=== PATIENT | male | born 2005 | race African-American/Black ===

== ENCOUNTER 2024-10-04 14:16 | Emergency (ER) | payer OTHER ==
[2024-10-04] MEDS ORDERED: ALBUTEROL 2.5 MG/3 ML NEB SOL ONE (14:28)
[2024-10-04] MEDS ORDERED: IPRATROPIUM BROM 0.5MG/2.5ML ONE (14:28)
[2024-10-04 15:04] LABS: SARS-CoV-2 Antigen Rapid Res Negative (Negative)
[2024-10-04 15:08] LABS: Absolute Lymphocytes (CBC) 0.4 K/uL (0.7-4.9); Absolute Monocytes 0.6 K/uL (0.1-1.3); Absolute Neutrophil 11.2 K/uL (1.8-8.0); Basophils % 0.1 % (0-1.3); Eosinophils % 0.1 % (0-4.4); Hemoglobin 11.9 g/dL (13.6-17.9); Lymphocytes % 3.5 % (15.3-44.8); MCV 79.6 fL (80-100); MPV 7.7 fL (7.6-11.3); Monocytes % 4.8 % (3.3-12.3); Neutrophils % 91.5 % (41.7-73.7); Nucleated Red Blood Cells % 0.1 % (0-0); Platelets 314 thou/uL (152-406); Red Cell Distribution Width 14.9 % (12.1-15.2)
--- NOTE | 2024-10-04 15:08 | RAD REPORT ---
EXAMINATION: TWO VIEW CHEST XR CLINICAL INDICATION: Male, 19 years old. [facility] MA[facility] shortness of breath Bed Name: 11 TECHNIQUE: 2 view radiographs of the chest were performed. COMPARISON: No prior exam. FINDINGS: Patchy opacities possibly with layering effusion components throughout most of the left hemithorax, w ith some residual aeration centrally and near the left base. Mild volume loss with mild leftward tracheal deviation. Right lung is clear. No pneumothorax or right-sided effusion. The heart is normal in size. Mediastinal contours are unremarkable. IMPRESSION: Left hemithorax pleural-parenchymal opacification as above, concerning for pneumonia.
[2024-10-04] MEDS ORDERED: CEFTRIAXONE 1000 MG/VIAL ONE (15:22)
[2024-10-04] MEDS ORDERED: AZITHROMYCIN 500 MG INJ IVPB ONE (15:22)
[2024-10-04] MEDS ORDERED: NA CHLORIDE 0.9% 250 ML ONE (15:22)
[2024-10-04 15:28] LABS: Albumin 3.1 g/dL (3.4-5.0); Albumin/Globulin Ratio 0.5 (1.1-1.8); Anion Gap 9.5 mEq/L (5.0-15.0); Bilirubin Total 0.3 mg/dL (0.2-1.0); Globulin 6.7 g/dL (2.3-3.5); Potassium 3.5 mEq/L (3.5-5.1); Protein, Total 9.8 g/dL (6.4-8.2)
[2024-10-04 15:31] LABS: PT Prothrombin Time 14.8 SECONDS (10-13.0); PTT, Activated Partial Thromb 29.6 SECONDS (27.2-37.4); Protime INR 1.32
--- NOTE | 2024-10-04 16:03 | EDPHYS ---
Physician Documentation [facility] Name: Nicky Marx Age: 19 yrs Sex: Male : 2005 Arrival Date: 10/04/2024 Time: 14:16 Bed 11 Private MD: ED Physician Shamar Tovar HPI: 10/04 14:21 This 19 yrs old Male presents to ER via Unassigned with complaints of Shortness Of ms3 Breath. 14:21 19-year-old male with past medical history of asthma presents to the emergency ms3 department for asthma exacerbation has been ongoing for 1 week. Patient states he has had a cough and lightheadedness. EMS notes patient was given 125 mg Solu-Medrol and a DuoNeb at the present. EMS notes patient's oxygen saturation 96% during transport. Patient denies pain. Patient denies any alleviating or inciting factors. Historical: - Allergies: 14:19 No Known Allergies; aa5 - PMHx: 14:41 Asthma; Depressive disorder; aa5 - Immunization history:: Adult Immunizations unknown. - Infectious Disease History:: Denies. - Social history:: Smoking status: Patient reports the use of cigarette tobacco products, Reported history of juuling and/or vaping. ROS: 14:21 Constitutional: Negative for fever, and chills. Cardiovascular: Negative for chest ms3 pain, and palpitations. Abdomen/GI: Negative for abdominal pain, nausea, vomiting, diarrhea, and constipation, 14:21 MS/Extremity: Negative for injury and deformity, Skin: Negative for injury, rash, and discoloration, 14:21 Respiratory: Positive for shortness of breath, Exam: 14:21 Constitutional: This is a well developed, well nourished patient who is awake, alert, ms3 and in no acute distress. Cardiovascular: Regular rate and rhythm with a normal S1 and S2. No gallops, murmurs, or rubs. Normal PMI, no JVD. No pulse deficits. Respiratory: Lungs have equal breath sounds bilaterally, clear to auscultation and percussion. No rales, rhonchi or wheezes noted. No increased work of breathing, no retractions or nasal flaring. Abdomen/GI: Soft, non-tender, with normal bowel sounds. No distension or tympany. No guarding or rebound. No evidence of tenderness throughout. Skin: Warm, dry with normal turgor. Normal color with no rashes, no lesions, and no evidence of cellulitis. MS/ Extremity: Pulses equal, no cyanosis. Neurovascular intact. Full, normal range of motion. 15:33 ECG was reviewed by the Attending Physician. ms3 Vital Signs: 14:19 BP 128 / 67; Pulse 107; Resp 20 S; Temp 100.2(O); Pulse Ox 97% on R/A; Weight 67.59 kg aa5 (R); Height 6 ft. 0 in. (R); 16:03 BP 126 / 70; Pulse 113; Resp 18 S; Temp 98.9(O); Pulse Ox 96% on R/A; aa5 17:00 BP 123 / 75; Pulse 102; Resp 18; Pulse Ox 94% on R/A; jb4 17:53 BP 135 / 73; Pulse 102; Resp 18; Pulse Ox 96% on R/A; jb4 14:19 Body Mass Index 20.21 (67.59 kg, 182.88 cm) aa5 MDM: 14:20 Medical Screening Exam initiated ms3 14:21 Differential diagnosis: asthma, pneumonia. ms3 16:03 Data reviewed: vital signs, nurses notes, lab test result(s), EKG, radiologic studies, ms3 plain films, and as a result, I will transfer patient. Consideration of Admission/Observation Patient transferred. Management of patient was discussed with the following: Hospitalist: [facility]illas- [facility]. I considered the following discharge prescriptions or medication management in the emergency department Medications were administered in the Emergency Department. See MAR. Independent interpretation of the following test(s) in the Emergency Department EKG: See my EKG interpretation above X-Ray: My interpretation is CXR image reveals L hemithorax opacification. Historians other than the Patient: EMS: Davion Marie. Counseling: I had a detailed discussion with the patient and/or guardian regarding the historical points, exam findings, and any diagnostic results supporting the discharge/admit diagnosis, lab results, radiology results, the need to transfer to another facility, [facility]. Response to treatment: There is no appreciated change of the patient's symptoms at this time, and as a result, I will transfer patient. ED course: Discussed with patient and guards necessity for admission. Patient is with [place] [facility] and necessitates transfer to [facility] if beds are available. Discussed case with and he accepts patient to [facility]. 10/04 14:31 Order name: SARS RAPID; Complete Time: 15:32 aa5 10/04 14:35 Order name: Blood Culture Adult (2) ms3 10/04 14:35 Order name: CBC with Diff; Complete Time: 17:07 ms3 10/04 14:35 Order name: CMP; Complete Time: 15:32 ms3 10/04 14:35 Order name: Lactate w/ 2H reflex if indic.; Complete Time: 15:32 ms3 10/04 14:35 Order name: Protime (+inr); Complete Time: 15:32 ms3 10/04 14:35 Order name: Ptt, Activated; Complete Time: 15:32 ms3 10/04 16:54 Order name: CBC Smear Scan; Complete Time: 17:07 EDMS 10/04 14:21 Order name: Chest Pa And Lat (2 Views) XRAY; Complete Time: 15:32 ms3 10/04 14:36 Order name: CT Chest W/ Con; Complete Time: 17:07 ms3 10/04 14:35 Order name: EKG; Complete Time: 14:36 ms3 10/04 14:35 Order name: Accucheck; Complete Time: 14:58 ms3 10/04 14:35 Order name: Cardiac monitoring; Complete Time: 14:58 ms3 10/04 14:35 Order name: EKG - Nurse/Tech; Complete Time: 14:58 ms3 10/04 14:35 Order name: IV Saline Lock - Large Bore; Complete Time: 14:58 ms3 10/04 14:35 Order name: Labs collected and sent; Complete Time: 14:58 ms3 10/04 14:35 Order name: O2 Per Protocol; Complete Time: 14:37 ms3 10/04 14:35 Order name: O2 Sat Monitoring; Complete Time: 14:37 ms3 10/04 14:35 Order name: Vital Signs; Complete Time: 14:37 ms3 EC:33 Rate is 102 beats/min. Rhythm is regular. QRS [place] is Normal. CO interval is normal. ms3 QRS interval is normal. Clinical impression: Sinus tachycardia. Interpreted by me. Reviewed by me. Administered Medications: 14:37 Drug: DuoNeb Nebulize (2.5 mg - 0.5 mg) 3 ml Nebulizer once Route: Nebulizer; aa5 15:00 Follow up: Response: No adverse reaction aa5 15:33 Drug: Rocephin IV 1 grams IV at calculated rate once; Given slow IV push per pharmacy aa5 instructions Route: IV; Rate: calculated rate; Site: right forearm; 15:36 Follow up: Response: No adverse reaction; IV Status: Completed infusion aa5 15:36 Drug: AZITHromycin IVPB 500 mg IVPB once over 1 hrs; (mix in 250 mL NS) Route: IVPB; aa5 Infused Over: 1 hrs; Site: right forearm; 15:46 Follow up: Response: No adverse reaction aa5 16:36 Follow up: Response: No adverse reaction; IV Status: Completed infusion; IV Intake: jb4 250ml Disposition Summary: 10/04/24 16:03 Transfer Ordered Notes: Transfer Location: [facility] ms3 Reason: Higher level of care ms3 Condition: Stable ms3 Problem: new ms3 Symptoms: are unchanged ms3 Accepting Physician: Dr Casillas(10/04/24 17:55) jb4 Diagnosis - Other pneumonia, unspecified organism ms3 - Shortness of breath ms3 - Sepsis, unspecified organism ms3 Discharge Instructions: - Discharge Summary Sheet bc6 Forms: - Medication Reconciliation Form ms3 - SBAR form bc6 Signatures: Dispatcher [employer] EDAstrid Aguirre, RN RN aa5 Aime Carcamo RN RN jb4 Shamar Toavr DO DO ms3 Corrections: (The following items were deleted from the chart) 14:21 14:21 Chest Pa And Lat (2 Views)+RAD.RAD.BRZ ordered. EDMS EDMS 14:36 14:36 BLOOD CULTURE*+BA.LAB.BRZ ordered. EDMS EDMS 14:36 14:36 CBC+H.LAB.BRZ ordered. EDMS EDMS 14:36 14:36 COMPREHENSIVE METABOLIC PANEL+C.LAB.BRZ ordered. EDMS EDMS 14:36 14:36 LACTATE+C.LAB.BRZ ordered. EDMS EDMS 14:36 14:36 PROTIME (+INR)+COAG.LAB.BRZ ordered. EDMS EDMS 14:36 14:36 PTT, ACTIVATED+COAG.LAB.BRZ ordered. EDMS EDMS 17:55 16:03 Dr Casillas ms3 jb4
--- NOTE | 2024-10-04 16:03 | ER ---
Nurse's Notes [facility] Name: Nicky Marx Age: 19 yrs Sex: Male : 2005 Arrival Date: 10/04/2024 Time: 14:16 Bed 11 Private MD: Diagnosis: Other pneumonia, unspecified organism;Shortness of breath;Sepsis, unspecified organism Presentation: 10/04 14:19 Chief complaint: Patient states: SOB and cough since Tuesday. aa5 14:19 Coronavirus screen: cough unrelated to allergies, shortness of breath. Ebola Screen: aa5 Patient denies travel to an Ebola-affected area in the 21 days before illness onset. Initial Sepsis Screen: Does the patient meet any 2 criteria? HR > 90 bpm. Does the patient have a suspected source of infection? No. Patient's initial sepsis screen is negative. Risk Assessment: Do you want to hurt yourself or someone else? Patient reports no desire to harm self or others. Onset of symptoms was October 04, 2024. 14:19 Acuity: RON 3 aa5 14:19 Method Of Arrival: EMS: [facility] [place] [place] [facility] aa5 14:19 Note EMS reports pt received Solu-Medrol and Duoneb tx by alf medical staff. aa5 14:19 Note Pt from [place] [facility]. aa5 Historical: - Allergies: 14:19 No Known Allergies; aa5 - PMHx: 14:41 Asthma; Depressive disorder; aa5 - Immunization history:: Adult Immunizations unknown. - Infectious Disease History:: Denies. - Social history:: Smoking status: Patient reports the use of cigarette tobacco products, Reported history of juuling and/or vaping. Screenin:20 [facility] ED Fall Risk Assessment (Adult) History of falling in the last 3 months, aa5 including since admission No falls in past 3 months (0 pts) Confusion or Disorientation No (0 pts) Intoxicated or Sedated No (0 pts) Impaired Gait No (0 pts) Mobility Assist Device Used No (0 pt) Altered Elimination No (0 pt) Score/Fall Risk Level 0 - 2 = Low Risk Oriented to surroundings, Maintained a safe environment, Educated pt \T\ family on fall prevention, incl call for assistance when getting out of bed, Assessed \T\ reinforced patient's understanding of fall precautions. Abuse screen: Denies threats or abuse. Nutritional screening: No deficits noted. Tuberculosis screening: No symptoms or risk factors identified. Assessment: 14:19 General: Appears uncomfortable, ill, Behavior is calm, cooperative. Pain: Denies pain. aa5 Neuro: Level of Consciousness is awake, alert, obeys commands, Oriented to person, place, time, situation. Cardiovascular: Heart tones S1 S2 present Rhythm is regular. Respiratory: Reports shortness of breath on exertion cough that is productive, Airway is patent Respiratory effort is even, unlabored, Respiratory pattern is regular, symmetrical, Breath sounds are diminished bilaterally. GI: No signs and/or symptoms were reported involving the gastrointestinal system. : No signs and/or symptoms were reported regarding the genitourinary system. EENT: No signs and/or symptoms were reported regarding the EENT system. Derm: Skin is dry, Skin is pale, Skin temperature is warm. Musculoskeletal: Range of motion: intact in all extremities. 15:27 Reassessment: Pt currently in CT . aa5 16:04 Neuro: Level of Consciousness is awake, alert, obeys commands, Oriented to person, aa5 place, time, situation. Respiratory: Airway is patent Respiratory effort is even, unlabored, Respiratory pattern is regular, symmetrical. Derm: Skin is dry, Skin is normal, Skin temperature is warm. 17:00 Reassessment: Patient appears in no apparent distress at this time. Patient and/or jb4 family updated on plan of care and expected duration. Pain level reassessed. Patient is alert, oriented x 3, equal unlabored respirations, skin warm/dry/pink. 17:50 Reassessment: Patient appears in no apparent distress at this time. Patient and/or jb4 family updated on plan of care and expected duration. Pain level reassessed. Patient is alert, oriented x 3, equal unlabored respirations, skin warm/dry/pink. Vital Signs: 14:19 BP 128 / 67; Pulse 107; Resp 20 S; Temp 100.2(O); Pulse Ox 97% on R/A; Weight 67.59 kg aa5 (R); Height 6 ft. 0 in. (R); 16:03 BP 126 / 70; Pulse 113; Resp 18 S; Temp 98.9(O); Pulse Ox 96% on R/A; aa5 17:00 BP 123 / 75; Pulse 102; Resp 18; Pulse Ox 94% on R/A; jb4 17:53 BP 135 / 73; Pulse 102; Resp 18; Pulse Ox 96% on R/A; jb4 14:19 Body Mass Index 20.21 (67.59 kg, 182.88 cm) aa5 ED Course: 14:19 Patient arrived in ED. aa5 14:19 Arm band placed on. aa5 14:19 Patient has correct armband on for positive identification. Bed in low position. Call aa5 light in reach. Side rails up X 1. Shelter guards at bedside. Received restrained by handcuffs and by feet shackles. 14:20 Shamar Tovar DO is Attending Physician. ms3 14:22 Triage completed. aa5 14:23 Astrid Steward RN is Primary Nurse. aa5 14:34 Chest Pa And Lat (2 Views) XRAY In Process Unspecified. EDMS 14:40 First set of blood cultures drawn by me. aa5 14:53 Initial lab(s) drawn, by ky, sent to lab. aa5 14:53 Second set of blood cultures drawn by me. aa5 14:58 Inserted saline lock: 18 gauge in right forearm, using aseptic technique. Flushed with aa5 10 mL NS. 15:20 No provider procedures requiring assistance completed. aa5 15:25 CT Chest W/ Con In Process Unspecified. EDMS 15:45 spoke with edmund the transfer center [facility] to initiate transfer . [facility] 16:00 bed acceptance received with DR Rufino Dobbins 728 bed 7 [facility]. [facility] 16:04 Report given to AMY Mcdonald. aa5 16:29 isaac with the transfer center adriana castillo with an ETA of 1-2 hours with [place] [id number] ambulance. 17:00 Provided Education on: plan of care. jb4 17:00 Patient transferred, IV remains in place. jb4 Administered Medications: 14:37 Drug: DuoNeb Nebulize (2.5 mg - 0.5 mg) 3 ml Nebulizer once Route: Nebulizer; aa5 15:00 Follow up: Response: No adverse reaction aa5 15:33 Drug: Rocephin IV 1 grams IV at calculated rate once; Given slow IV push per pharmacy aa5 instructions Route: IV; Rate: calculated rate; Site: right forearm; 15:36 Follow up: Response: No adverse reaction; IV Status: Completed infusion aa5 15:36 Drug: AZITHromycin IVPB 500 mg IVPB once over 1 hrs; (mix in 250 mL NS) Route: IVPB; aa5 Infused Over: 1 hrs; Site: right forearm; 15:46 Follow up: Response: No adverse reaction aa5 16:36 Follow up: Response: No adverse reaction; IV Status: Completed infusion; IV Intake: jb4 250ml Medication: 15:19 VIS not applicable for this client. aa5 Intake: 16:36 IV: 250ml; Total: 250ml. jb4 Outcome: 16:03 ER care complete, transfer ordered by . ms3 17:00 Transferred by ground EMS [facility]. to [facility], Transfer jb4 form completed. X-rays sent w/ patient. 17:00 Condition: stable 17:00 Discharge instructions given to patient, Skilled Nursing Guards Instructed on the need for transfer, Demonstrated understanding of instructions, 17:55 Patient left the ED. jb4 Signatures: Dispatcher [employer] EDMS Astrid Steward, RN RN aa5 Aime Carcamo, AMY RN jb4 Shamar Tovar DO DO ms3 Aletha Meneses bc6 Corrections: (The following items were deleted from the chart) 14:23 14:19 Method Of Arrival: Ambulatory aa5 aa5 14:23 14:19 BP 128 / 67; Pulse 107bpm; Resp 20bpm; Spontaneous; Pulse Ox 97% RA; Temp 100.2F aa5 Oral; aa5 16:43 15:45 spoke with [facility] to initiate transfer . bc6 bc6
[2024-10-04 16:54] LABS: Blood Morphology Comment NOT SEEN (NOT SEEN); Platelet Estimate ADEQ; White Blood Cell Scan OK (OK)
--- NOTE | 2024-10-04 16:57 | RAD REPORT ---
EXAM: CT Thorax W/ Con CLINICAL INDICATION: Male, 19 years old. shortness of breath TECHNIQUE: Routine CT scan of the chest with intravenous contrast. One or more of the following dose reduction techniques were used: Automated exposure control, adjustment of the mA and/or kV according to patient size, and/or iterative reconstruction. Unless otherwise specified, incidental fi ndings do not require dedicated imaging follow-up. COMPARISON: Chest radiograph of earlier the same day. FINDINGS: LUNGS: Narrowing of the distal left main bronchus with some secretions. Changes of varicose bronchiec tasis throughout most of the left lung with superimposed fluid filling, some air-fluid levels, and opacification of the intervening airspace. Subsegmental spared left basilar components. Overall volum e loss on the left with mild leftward tracheal deviation. Right lung is clear. PLEURA: No pleural effusion. No pneumothorax. MEDIASTINUM AND LYMPH NODES: No mediastinal mass or fluid collection. Prominent mediastinal lymph nod es largest in the prevascular space measuring 2.3 cm in short axis, favored to be reactive. OSSEOUS STRUCTURES AND CHEST WALL: Intact. UPPER ABDOMEN: No significant abnormalities. IMPRESSION: Extensive bronchiectatic changes throughout most of the left lung with superimposed fluid filling and opacification of the intervening parenchyma. At least mild to moderate narrowing of the distal left main bronchus. The right lung is clear. The regional or unilateral involvement with bronchiectas is would suggest pneumonia superimposed on chronic postinfectious or postinflammatory sequelae such as in the setting of prior tuberculous or nontuberculosis microbacterial infection, versus sequelae o f a congenital or developmental abnormality such as bronchial atresia or pulmonary sequestration. Underlying endobronchial malignancy or other obstructive causes are considered less likely. THIS REPORT CONTAINS FINDINGS THAT MAY BE CRITICAL TO PATIENT CARE. The findings were verbally commun icated via telephone to Shamar Tovar on 10/04/2024 4:54 PM.
[2024-10-04 18:10] VITALS: TEMP 98.9
[2024-10-04 18:21] VITALS: BP 135/73; O2SAT 96
--- NOTE | 2024-10-08 12:11 | EKG ---
Test Date: 2024-10-04 Test Time: 14:52:03 Self Propelled Hot Mix Roller Operator: LML MEASUREMENT RESULTS: Intervals: Rate: 102 IN: 140 QRSD: 88 QT: 342 QTc: 445 [place]: P: 75 IN: 140 QRS: 79 T: 65 INTERPRETIVE STATEMENTS: Sinus tachycardia Otherwise normal ECG No previous ECG available for comparison Electronically Signed On 10-08-24 12:07:54 CDT by Davidson Mcgill
== END 2024-10-04 17:55 | disposition short-term general hospital (02) ==
LOC: ER 14:16
DX: J18.8 Other pneumonia, unspecified organism (principal); A41.9 Sepsis, unspecified organism; Z11.52 Encounter for screening for COVID-19; Z72.0 Tobacco use
CPT/HCPCS: 96365; 93005; 87040 ×2; 85025; 36415; 85610; 83605; 85730; 80053; 71260; 71046; 96375; 99285; 87426; Q9967; J0696; J7050; J7613; J7644